=== PATIENT | female | born 1970 | race African-American/Black ===

== ENCOUNTER 2019-05-23 17:03 | Emergency (ER) | payer OTHER ==
[~2019-05-23] VITALS: Ht 157.5 cm; Wt 68.0 kg
[2019-05-23] MEDS ORDERED: PROMETH-CODEIN 65 ML PO (18:40)
[2019-05-23] MEDS ORDERED: PREDNISONE 20 M20 MG PO (18:40)
[2019-05-23] MEDS ORDERED: DIOVAN40 MG PO (18:42)
[2019-05-23 19:01] VITALS: BP 163/100
== END 2019-05-23 19:02 | disposition home or self-care (01) ==
LOC: ER 17:03
DX: J45.909 Unspecified asthma, uncomplicated (principal); I10 Essential (primary) hypertension; D57.3 Sickle-cell trait; F17.210 Nicotine dependence, cigarettes, uncomplicated; Z91.040 Latex allergy status; Z91.018 Allergy to other foods

== ENCOUNTER 2020-03-10 19:49 | Emergency (ER) | payer OTHER ==
[~2020-03-10] VITALS: Ht 157.5 cm; Wt 73.0 kg
[~2020-03-10 19:49] MED LIST: DIOVAN40 MG PO; PREDNISONE 20 M20 MG PO; PROMETH-CODEIN 65 ML PO
[2020-03-10] MEDS ORDERED: NORVASC5 M1 PO (20:52)
[2020-03-10] MEDS ORDERED: HYDROCHLOROTHIA25 M2 PO (20:52)
[2020-03-10 22:24] LABS: URINE BILIRUBIN NEGATIVE (Negative); URINE BLOOD NEGATIVE (Negative); URINE CLARITY CLEAR; URINE COLOR YELLOW; URINE GLUCOSE-RANDOM* NEGATIVE (Negative); URINE KETONES NEGATIVE (Negative); URINE LEUKOCYTES-REFLEX NEGATIVE (Negative); URINE NITRITE-REFLEX NEGATIVE (Negative); URINE PROTEIN (DIPSTICK) NEGATIVE (Negative); URINE UROBILINOGEN 0.2 E.U./dl (0.2-1.0)
[2020-03-10] MEDS ORDERED: HYDROCODON-ACE1 EAC7 PO (22:37)
[2020-03-10] MEDS ORDERED: SENNA-DOCUSATE1 EAC1 PO (22:37)
[2020-03-10 23:11] VITALS: BP 144/88
--- NOTE | 2020-03-11 13:11 | EKG ---
[place] [address] [address] [facility] [place] [address] ELECTROCARDIOGRAM REPORT Name: RUKHSANA BLACKBURN [facility] [id number] Admission: 03/10/20 Attend Phys: Discharge: 03/10/20 Date of : 72 Report #: [id number] [facility] ED Test Date: 2020-03-10 Test Time: 20:04:44 Pat Name: RUKHSANA BLACKBURN Department: Room: Gender: F [employer]: : 1970 Requested By: Av Jang Order Number: [id number] MD: Rashaad Echeverria Measurements Intervals [place] Rate: 88 P: 76 CA: 167 QRS: 66 QRSD: 84 T: 27 QT: 356 QTc: 431 Interpretive Statements Sinus rhythm Probable left atrial enlargement No previous ECG available for comparison Electronically Signed On 03-11-2020 13:11:39 [employer]NAGER [employer]MENT by Rashaad Echeverria [email or web address] <ELECTRONICALLY SIGNED> By: Rashaad Echeverria MD, [facility] 03/11/20 1311 2004 03 Rashaad Echeverria MD, FACC /EPI
== END 2020-03-10 23:11 | disposition home or self-care (01) ==
LOC: ER 19:49
PROVIDERS: Physician Assistant
DX: G89.29 Other chronic pain (principal); M54.6 Pain in thoracic spine; M54.5 Low back pain; I10 Essential (primary) hypertension; J45.909 Unspecified asthma, uncomplicated; F17.210 Nicotine dependence, cigarettes, uncomplicated; Z79.899 Other long term (current) drug therapy; Z91.018 Allergy to other foods; Z91.040 Latex allergy status